=== PATIENT | female | born 1970 | race Caucasian/White ===

== ENCOUNTER → 2016-11-02 | Outpatient (CLI) | payer BC ==
[~2016-11-02] MED LIST: MESALAMINE; PRED10TA PO; RMCI; SYN75 PO; [UNRECOGNIZED DRUG - OTHER] TOP
--- NOTE | 2016-11-02 15:16 | MAMMOGRAPHY REPORT ---
BILATERAL DIGITAL DIAGNOSTIC MAMMOGRAM TOMOSYNTHESIS WITH CAD: 11/02/2016 CLINICAL HISTORY: 46-year-old woman presents to reassess the left breast for a probably benign asymm etry previously seen in the medial aspect of the breast. Also annual bilateral screening mammogram. TECHNIQUE: Bilateral breast tomosynthesis in addition to standard 2D mammography was performed. Curr ent study was also evaluated with a Computer Aided Detection (CAD) system. COMPARISON: Comparison is made to exams dated: 10/31/2015 ultrasound, 10/31/2015 mammogram, 04/17/2015 ultrasound, 12/11/2014 ultrasound, 12/11/2014 mammogram, and 09/19/2014 mammogram - [facility]. BREAST COMPOSITION: The tissue of both breasts is heterogeneously dense, which may obscure small ma sses. FINDINGS: The left breast asymmetry is less prominent compared to prior exams. Overall, no suspicio us mass, architectural distortion or cluster of suspicious microcalcifications is seen. There is a stable intramammary lymph node in the upper outer posterior right breast. IMPRESSION: ACR BI-RADS CATEGORY 2: BENIGN Less prominent asymmetries in the left breast, confirming benignity. There is no mammographic evide nce of malignancy bilaterally. A 1 year screening mammogram is recommended. The patient has been ve rbally notified of the results. Approximately 10% of breast cancers are not detected with mammography. A negative mammographic repor t should not delay biopsy if a clinically suggestive mass is present. Bianka Donato M.D. ay/:11/02/2016 12:14:18 Grader Operator: Eunice FRANCISCO(Effie)(Arcenio), [facility] letter sent: Normal 1/2 BI-RADS Code: ACR BI-RADS Category 2: Benign
== END | disposition home or self-care (01) ==
LOC: C.MAMM 10:23
PROVIDERS: ATTEND Family Medicine
DX: Z09 Encounter for follow-up examination after completed treatment for conditions other than malignant neoplasm (principal); N64.89 Other specified disorders of breast

== ENCOUNTER → 2017-03-10 | Outpatient (CLI) | payer BC | END | disposition home or self-care (01) | LOC: C.PAPS 14:15 | PROVIDERS: ATTEND Family Medicine | DX: Z12.72 Encounter for screening for malignant neoplasm of vagina (principal) ==

== ENCOUNTER → 2017-08-23 | Outpatient (CLI) | payer OTHER ==
--- NOTE | 2017-08-23 09:53 | DIAGNOSTIC IMAGING REPORT ---
ABDOMEN COMPLETE (US) HISTORY: Pain. Nausea. ABD PAIN. COMPARISON: 10/31/2015 FINDINGS: Pancreas: The pancreas demonstrates a normal echotexture. Liver: Unremarkable. Gallbladder: No gallbladder wall thickening. No gallstones. CBD: 5 mm Kidneys: No hydronephrosis. Spleen: Normal in size. Aorta: Normal in caliber. IVC: Patent. IMPRESSION: No significant abnormality identified within the within the abdomen. No change from the prior study. The above report was generated using voice recognition software. It may contain grammatical, syntax or spelling errors. Electronically signed by: Brian Mcdonald M.D. 08/23/2017 9:52 AM Dictated Date/Time: 08/23/2017 9:51 AM
== END | disposition home or self-care (01) ==
LOC: C.ULTR 08:57
PROVIDERS: ATTEND Family Medicine
DX: R10.13 Epigastric pain (principal)

== ENCOUNTER → 2017-10-04 | Outpatient (CLI) | payer OTHER ==
--- NOTE | 2017-10-04 10:56 | DIAGNOSTIC IMAGING REPORT ---
THORACIC SPINE 3 VIEWS ROUTINE HISTORY: Pain DORSALGIA,UNSPECIFIED COMPARISON: None. FINDINGS: There is no fracture. Mild scoliosis. Mild degenerative disc changes throughout. Mild reactive sclerosis and osteophytic change of the vertebral endplates. IMPRESSION: Mild scoliosis. Mild/moderate degenerative disc change. No acute process. The above report was generated using voice recognition software. It may contain grammatical, syntax or spelling errors. Electronically signed by: Brian Mcdonald M.D. 10/04/2017 10:54 AM Dictated Date/Time: 10/04/2017 10:53 AM
--- NOTE | 2017-10-04 11:11 | DIAGNOSTIC IMAGING REPORT ---
SI JOINTS 3 OR MORE VIEWS CLINICAL HISTORY: 47 years-old Female presenting with DORSALGIA,UNSPECIFIED. TECHNIQUE: Frontal and bilateral oblique views of the sacroiliac joints were obtained. COMPARISON: CT from 2009. FINDINGS: Arcuate lines intact. Neural foramina normal. No significant osteophytosis at the sacroiliac joints. No evidence of osseous fusion or erosion. The sacroiliac joints are symmetric. Pubic symphysis normal. Bilateral hip joints congruent. Lower lumbar spine normal. IMPRESSION: Normal radiographs of the sacroiliac joints. Electronically signed by: Carlos Jara M.D. 10/04/2017 11:10 AM Dictated Date/Time: 10/04/2017 11:08 AM
--- NOTE | 2017-10-04 12:48 | DIAGNOSTIC IMAGING REPORT ---
L-SPINE MIN 4 VIEWS ROUTINE HISTORY: Pain DORSALGIA,UNSPECIFIED COMPARISON: None. FINDINGS: There is no fracture. No subluxation. Moderate degenerative disc change L5-S1 IMPRESSION: Moderate degenerative disc change L5-S1. Otherwise negative study. The above report was generated using voice recognition software. It may contain grammatical, syntax or spelling errors. Electronically signed by: Brian Mcdonald M.D. 10/04/2017 12:47 PM Dictated Date/Time: 10/04/2017 12:46 PM
== END | disposition home or self-care (01) ==
LOC: C.RAD 09:34
PROVIDERS: ATTEND Internal Medicine Gastroenterology
DX: M54.9 Dorsalgia, unspecified (principal); M51.37 Other intervertebral disc degeneration, lumbosacral region; M51.34 Other intervertebral disc degeneration, thoracic region

== ENCOUNTER → 2017-10-21 | Outpatient (CLI) | payer OTHER ==
[~2017-10-21] MED LIST changes: +SINCALIDE INJ 1.1 MCG in SODIUM CHLORIDE 0.9% 100ML 100 ML IV SCH
--- NOTE | 2017-10-21 10:13 | DIAGNOSTIC IMAGING REPORT ---
NUCLEAR MEDICINE HEPATOBILIARY SCAN WITH GALLBLADDER EJECTION FRACTION CLINICAL HISTORY: Abdominal pain. COMPARISON: Hepatobiliary scan August 28, 2014 and abdominal ultrasound August 23, 2017. TECHNIQUE: 5.5 mCi of technetium 99m Choletec IV was injected at 8:00 AM on October 21, 2017. Immediately following injection, imaging of the abdomen was carried out for 60 minutes in the anterior projection. At this time, 1.1 mcg of Sincalide was injected IV as per protocol. Imaging was performed for an additional 45 minutes to estimate a gallbladder ejection fraction. FINDINGS: Hepatic uptake of radiotracer prompt and homogeneous. Activity is identified within the gallbladder and common bile duct at 10 minutes. Small bowel activity is first noted at 25 minutes. Following injection of sincalide, gallbladder emptying was within normal limits with an ejection fraction of 43%. Normal is greater than 30-35%. IMPRESSION: 1. Normal hepatobiliary scan. 2. Normal gallbladder ejection fraction of 43%. Electronically signed by: Yousuf Tavarez M.D. 10/21/2017 10:11 AM Dictated Date/Time: 10/21/2017 10:10 AM
== END | disposition home or self-care (01) ==
LOC: C.NUCL 07:34
PROVIDERS: ATTEND Internal Medicine Gastroenterology
DX: R10.9 Unspecified abdominal pain (principal); M54.9 Dorsalgia, unspecified

== ENCOUNTER → 2017-11-29 | Outpatient (CLI) | payer OTHER ==
[~2017-11-29] MED LIST changes: -SINCALIDE INJ 1.1 MCG in SODIUM CHLORIDE 0.9% 100ML 100 ML IV SCH
--- NOTE | 2017-11-29 15:25 | MAMMOGRAPHY REPORT ---
BILATERAL DIGITAL SCREENING MAMMOGRAM TOMOSYNTHESIS WITH CAD: 11/29/2017 CLINICAL HISTORY: Routine screening. Patient has no complaints. TECHNIQUE: Breast tomosynthesis in addition to standard 2D mammography was performed. Current study was also evaluated with a Computer Aided Detection (CAD) system. COMPARISON: Comparison is made to exams dated: 11/02/2016 mammogram, 10/31/2015 mammogram, 04/17/2015 m ammogram, 12/11/2014 mammogram, and 01/01/2011 mammogram - [facility]. BREAST COMPOSITION: The tissue of both breasts is heterogeneously dense, which may obscure small mas ses. FINDINGS: A linear scar marker overlies the upper outer anterior left breast. There are stable asymm etries in the left upper outer quadrant. No new suspicious mass, architectural distortion or cluster of microcalcifications is seen. IMPRESSION: ACR BI-RADS CATEGORY 1: NEGATIVE There is no mammographic evidence of malignancy. A 1 year screening mammogram is recommended. The pa tient will receive written notification of the results. Approximately 10% of breast cancers are not detected with mammography. A negative mammographic report should not delay biopsy if a clinically suggestive mass is present. Bianka Donato M.D. ay/:11/29/2017 13:27:10 Mold Maker Plastic Molds: Eunice FRANCISCO(Effie)(Arcenio), [facility] letter sent: Normal 1/2 BI-RADS Code: ACR BI-RADS Category 1: Negative
== END | disposition home or self-care (01) ==
LOC: C.MAMM 12:30
PROVIDERS: ATTEND Family Medicine
DX: Z12.31 Encounter for screening mammogram for malignant neoplasm of breast (principal)